=== PATIENT | female | born 1960 | race American Indian/Alaskan Native ===

== ENCOUNTER 2017-02-27 15:31 | Emergency (ER) | payer SELFPAY ==
[~2017-02-27] VITALS: Ht 162.6 cm; Wt 80.3 kg
[2017-02-27] MEDS ORDERED: IV NORMAL SALINE 1000ML BAG 1,000 ML IV ONE (16:00)
[2017-02-27] MEDS ORDERED: MORPHINE SULFATE 10 MG/ML VIAL. IV ONE (16:00)
[2017-02-27] MEDS ORDERED: ONDANSETRON PF 4 MG/2 ML VIAL. IV ONE (16:00)
[2017-02-27 16:20] LABS: BASO # 0.1 x10^3/uL (0.0-0.2); BASO % 1 % (0-3); EOS % 3 % (0-3); HEMATOCRIT 37.8 % (36.0-47.0); HEMOGLOBIN 13.4 g/dL (12.0-15.5); LYMPH # 3.1 x10^3/uL (1.0-4.8); LYMPH % 31 % (24-48); MEAN CORPUSCULAR HEMOGLOBIN 33 pg (25-35); MEAN CORPUSCULAR HGB CONC 35 g/dL (31-37); MEAN CORPUSCULAR VOLUME 93 fL (79-100); MONO % 8 % (0-9); NEUT % 58 % (31-73); PLATELET COUNT 289 x10^3/uL (140-400); RED BLOOD COUNT 4.09 x10^6/uL (3.50-5.40); RED CELL DISTRIBUTION WIDTH 12.6 % (11.5-14.5)
[2017-02-27] MEDS ORDERED: CONTRAST GIVEN MC PRN (16:30)
[2017-02-27] MEDS ORDERED: IOHEXOL 300 MG/ML 75 ML VIAL IV ONE (16:30)
[2017-02-27 16:41] LABS: CALCIUM 8.8 mg/dL (8.5-10.1); CREATININE 0.8 mg/dL (0.6-1.0); GFR 74.5; POTASSIUM 4.2 mmol/L (3.5-5.1)
--- NOTE | 2017-02-27 16:42 | PHYS DOC ---
Past Medical History Past Medical History: Asthma, Diabetes-Type II, Hypertension Past Surgical History: Appendectomy, Cholecystectomy, Hysterectomy Alcohol Use: None Drug Use: None Adult General Chief Complaint Chief Complaint: ABDOMINAL PAIN HPI HPI Patient is a 56 year old female presenting to the emergency department for evaluation of diffuse abdominal pain nausea vomiting and diarrhea started 2-3 days ago and has persisted. The pain is worse on her left side but she has some right sided sharp pain intermittently as well. She has had a cholecystectomy. She says the emesis is nonbloody nonbilious and diarrhea is watery but no blood. No recent travel history or antibiotic use. She was seen by her primary care provider and told to come straight to the emergency department. She is in no obvious distress with normal vital signs. Review of Systems Review of Systems Constitutional: Denies fever or chills [] Eyes: Denies change in visual acuity, redness, or eye pain [] HENT: Denies nasal congestion or sore throat [] Respiratory: Denies cough or shortness of breath [] Cardiovascular: No additional information not addressed in HPI [] GI: + abdominal pain, nausea, vomiting, diarrhea [] : Denies dysuria or hematuria [] Musculoskeletal: Denies back pain or joint pain [] Integument: Denies rash or skin lesions [] Neurologic: Denies headache, focal weakness or sensory changes [] Current Medications Current Medications Current Medications Medications (Trade) Dose Ordered Sig/Yokasta Start Time Stop Time Status Last Admin Dose Admin Info (Do NOT chart on this entry -- for MONITORING) 1 each PRN DAILY PRN 02/27/17 16:30 03/01/17 16:29 Iohexol (Omnipaque 300 Mg/ml) 75 ml 1X ONCE 02/27/17 16:30 02/27/17 16:31 DC 02/27/17 17:04 75 ML Morphine Sulfate 5 mg 1X ONCE 02/27/17 16:00 02/27/17 16:01 DC 02/27/17 18:19 5 MG Ondansetron HCl (Zofran) 8 mg 1X ONCE 02/27/17 16:00 02/27/17 16:01 DC 02/27/17 18:18 8 MG Sodium Chloride 1,000 ml @ 1,000 mls/hr 1X ONCE 02/27/17 16:00 02/27/17 16:59 DC 02/27/17 18:17 1,000 MLS/HR Allergies Allergies Allergies Coded Allergies Type Severity Reaction Last Updated Verified Latex, Natural Rubber Allergy Severe blisters 06/15/14 Yes Uncoded Allergies Type Severity Reaction Last Updated Verified cumin Allergy Severe rash 06/15/14 Physical Exam Physical Exam Constitutional: Well developed, well nourished, no acute distress, non-toxic appearance. [] HENT: Normocephalic, atraumatic, bilateral external ears normal, oropharynx moist, no oral exudates, nose normal. [] Eyes: PERRLA, EOMI, conjunctiva normal, no discharge. [] Neck: Normal range of motion, no tenderness, supple, no stridor. [] Cardiovascular:Heart rate regular rhythm, no murmur [] Lungs & Thorax: Bilateral breath sounds clear to auscultation [] Abdomen: Bowel sounds normal, soft, + LUQ and LLQ tenderness, no masses, no pulsatile masses. [] Skin: Warm, dry, no erythema, no rash. [] Back: No tenderness, no CVA tenderness. [] Extremities: No tenderness, no cyanosis, no clubbing, ROM intact, no edema. [] Neurologic: Alert and oriented X 3, normal motor function, normal sensory function, no focal deficits noted. [] Current Patient Data Vital Signs Vital Signs Date Time Temp Pulse Resp B/P (MAP) Pulse Ox O2 Delivery O2 Flow Rate FiO2 02/27/17 18:19 19 97 Room Air 02/27/17 15:45 97.6 94 147/69 (95) 97.6 Lab Values Laboratory Tests Test 02/27/17 16:05 02/27/17 16:23 White Blood Count 10.0 x10^3/uL (4.0-11.0) Red Blood Count 4.09 x10^6/uL (3.50-5.40) Hemoglobin 13.4 g/dL (12.0-15.5) Hematocrit 37.8 % (36.0-47.0) Mean Corpuscular Volume 93 fL (79-100) Mean Corpuscular Hemoglobin 33 pg (25-35) Mean Corpuscular Hemoglobin Concent 35 g/dL (31-37) Red Cell Distribution Width 12.6 % (11.5-14.5) Platelet Count 289 x10^3/uL (140-400) Neutrophils (%) (Auto) 58 % (31-73) Lymphocytes (%) (Auto) 31 % (24-48) Monocytes (%) (Auto) 8 % (0-9) Eosinophils (%) (Auto) 3 % (0-3) Basophils (%) (Auto) 1 % (0-3) Neutrophils # (Auto) 5.8 x10^3uL (1.8-7.7) Lymphocytes # (Auto) 3.1 x10^3/uL (1.0-4.8) Monocytes # (Auto) 0.8 x10^3/uL (0.0-1.1) Eosinophils # (Auto) 0.3 x10^3/uL (0.0-0.7) Basophils # (Auto) 0.1 x10^3/uL (0.0-0.2) Sodium Level 136 mmol/L (136-145) Potassium Level 4.2 mmol/L (3.5-5.1) Chloride Level 101 mmol/L (98-107) Carbon Dioxide Level 28 mmol/L (21-32) Anion Gap 7 (6-14) Blood Urea Nitrogen 14 mg/dL (7-20) Creatinine 0.8 mg/dL (0.6-1.0) Estimated GFR (Cockcroft-Gault) 74.5 BUN/Creatinine Ratio 18 (6-20) Glucose Level 315 mg/dL (70-99) H Lactic Acid Level 1.6 mmol/L (0.4-2.0) Calcium Level 8.8 mg/dL (8.5-10.1) Magnesium Level 2.0 mg/dL (1.8-2.4) Total Bilirubin 0.1 mg/dL (0.2-1.0) L Aspartate Amino Transferase (AST) 14 U/L (15-37) L Alanine Aminotransferase (ALT) 26 U/L (14-59) Alkaline Phosphatase 98 U/L (46-116) Creatine Kinase 177 U/L (26-192) Total Protein 7.5 g/dL (6.4-8.2) Albumin 3.6 g/dL (3.4-5.0) Albumin/Globulin Ratio 0.9 (1.0-1.7) L Lipase 111 U/L (73-393) Urine Collection Type Unknown Urine Color Yellow Urine Clarity Clear Urine pH 6.0 Urine Specific [place] >=1.030 Urine Protein Negative mg/dL (NEG-TRACE) Urine Glucose (UA) >=1000 mg/dL (NEG) Urine Ketones (Stick) Negative mg/dL (NEG) Urine Blood Negative (NEG) Urine Nitrite Negative (NEG) Urine Bilirubin Negative (NEG) Urine Urobilinogen Dipstick 0.2 mg/dL (0.2 mg/dL) Urine Leukocyte Esterase Small (NEG) Urine RBC 0 /HPF (0-2) Urine WBC 5-10 /HPF (0-4) Urine Squamous Epithelial Cells Few /LPF Urine Bacteria Few /HPF (0-FEW) Laboratory Tests 02/27/17 16:05 Laboratory Tests 02/27/17 16:05 EKG EKG [] Radiology/Procedures Radiology/Procedures CT Abdomen and Pelvis With Intravenous Contrast: History: Mid upper abdominal pain for 5 days. Comparison: None. Technique: After administration of intravenous contrast, 75 mL of Omnipaque 300, CT of the abdomen and pelvis was performed. Exposure: One or more of the following individualized dose reduction techniques were utilized for this examination: 1. Automated exposure control 2. Adjustment of the mA and/or kV according to patient size 3. Use of iterative reconstruction technique Findings: Evaluation of enteric structures may be limited by lack of oral contrast. Liver, spleen, pancreas, and right adrenal gland are unremarkable. Mild nodular thickening of left adrenal gland is seen. Gallbladder is absent. Bilateral kidneys enhance symmetrically. Aortic atherosclerosis is noted. A moderate fat-containing epigastric ventral hernia is seen. There is an additional small fat-containing epigastric ventral hernia just superior to the level of the umbilicus. No bowel obstruction or inflammation is appreciated. Appendix is not confidently identified. Degenerative changes are present in the spine. Impression: 1. No acute abnormality identified in the abdomen or pelvis. 2. Fat-containing epigastric ventral hernias. Electronically signed by: Adalberto Miranda MD (02/27/2017 5:26 PM) DICTATED and SIGNED BY: ADALBERTO MIRANDA MD DATE: 02/27/17 110 Course & Med Decision Making Course & Med Decision Making Patient presenting to ED for evaluation of non-specific abd pain, n,v,d. Patient given several medications and her pain and nausea is resolved and she is feeling better nausea to go home. She can tolerate fluids with no difficulty so she will be discharged with supportive treatment told to follow with primary care provider and come back to the ER sooner with worsening pain fevers vomiting or other general concerns. Marina Disclaimer Marina Disclaimer This electronic medical record was generated, in whole or in part, using a voice recognition dictation system. Departure Departure Impression: Primary Impression: Abdominal pain Additional Impressions: Nausea & vomiting Diarrhea Disposition: HOME, SELF-CARE Condition: GOOD Referrals: UNKNOWN PCP NAME (PCP) Patient Instructions: Abdominal Pain (Nonspecific) Additional Instructions: Drink plenty of water and treat your blood sugars as appropriate. Scripts Ondansetron (ZOFRAN ODT) 4 Mg Tab.rapdis 4 MG PO BID Y for NAUSEA/VOMITING, #14 TAB Prov: BENJIE GARRIDO DO 02/27/17 Hydrocodone/Apap 5-325 (NORCO 5-325 TABLET) 1 Each Tablet 1 TAB PO PRN Q6HRS Y for PAIN, #20 TAB 0 Refills Prov: BENJIE GARRIDO DO 02/27/17 Problem Qualifiers Primary Impression: Abdominal pain Abdominal location: generalized Qualified Codes: R10.84 - Generalized abdominal pain BENJIE GARRIDO DO Feb 27, 2017 16:42
[2017-02-27 16:47] LABS: ALBUMIN 3.6 g/dL (3.4-5.0); ALBUMIN/GLOBULIN RATIO 0.9 (1.0-1.7); TOTAL BILIRUBIN 0.1 mg/dL (0.2-1.0); TOTAL PROTEIN 7.5 g/dL (6.4-8.2)
[2017-02-27 17:01] LABS: BILIRUBIN,URINE NEGATIVE (NEG); GLUCOSE,URINE >=1000 mg/dL (NEG); NITRITE,URINE NEGATIVE (NEG); PROTEIN,URINE NEGATIVE (NEG-TRACE); UROBILINOGEN,URINE 0.2 mg/dL (0.2 mg/dL)
[2017-02-27 17:07] LABS: BACTERIA,URINE FEW /HPF (0-FEW); RBC,URINE 0 /HPF (0-2); SQUAMOUS EPITHELIAL CELL,UR FEW /LPF
--- NOTE | 2017-02-27 17:30 | RAD ---
CT Abdomen and Pelvis With Intravenous Contrast: History: Mid upper abdominal pain for 5 days. Comparison: None. Technique: After administration of intravenous contrast, 75 mL of Omnipaque 300, CT of the abdomen and pelvis was performed. Exposure: One or more of the following individualized dose reduction techniques were utilized for this examination: 1. Automated exposure control 2. Adjustment of the mA and/or kV according to patient size 3. Use of iterative reconstruction technique Findings: Evaluation of enteric structures may be limited by lack of oral contrast. Liver, spleen, pancreas, and right adrenal gland are unremarkable. Mild nodular thickening of left adrenal gland is seen. Gallbladder is absent. Bilateral kidneys enhance symmetrically. Aortic atherosclerosis is noted. A moderate fat-containing epigastric ventral hernia is seen. There is an additional small fat-containing epigastric ventral hernia just superior to the level of the umbilicus. No bowel obstruction or inflammation is appreciated. Appendix is not confidently identified. Degenerative changes are present in the spine. Impression: 1. No acute abnormality identified in the abdomen or pelvis. 2. Fat-containing epigastric ventral hernias. Electronically signed by: Adalberto Miranda MD (02/27/2017 5:26 PM)
[2017-02-27] MEDS ORDERED: ONDA4TAB10 PO (18:56)
[2017-02-27] MEDS ORDERED: HYDR-971 PO (18:56)
[2017-02-27 19:25] VITALS: BP 117/65
== END 2017-02-27 19:27 | disposition home or self-care (01) ==
LOC: ER 15:31
DX: R10.84 Generalized abdominal pain (principal); R11.2 Nausea with vomiting, unspecified; R19.7 Diarrhea, unspecified; J45.909 Unspecified asthma, uncomplicated; E11.9 Type 2 diabetes mellitus without complications; I10 Essential (primary) hypertension; Z90.710 Acquired absence of both cervix and uterus; Z90.49 Acquired absence of other specified parts of digestive tract; Z91.040 Latex allergy status; Z91.018 Allergy to other foods
CPT/HCPCS: 36415; 74177; 80053; 81001; 82550; 83605; 83690; 83735; 85027; 87086; 96374; 96375; 99285; J2270; J2405; J7030; Q9967

== ENCOUNTER 2017-03-31 17:54 | Emergency (ER) | payer SELFPAY ==
[~2017-03-31] VITALS: Ht 162.6 cm; Wt 80.7 kg
[~2017-03-31 17:54] MED LIST: HYDR-971 PO; ONDA4TAB10 PO
[2017-03-31] MEDS ORDERED: IV NORMAL SALINE 1000ML BAG 1,000 ML IV SCH (18:21)
--- NOTE | 2017-03-31 18:36 | PHYS DOC ---
Past Medical History Past Medical History: Asthma, Diabetes-Type II, High Cholesterol, Hypertension Past Surgical History: Appendectomy, Cholecystectomy, Hysterectomy Additional Information: 1 PACK/DAY Alcohol Use: None Drug Use: None Adult General Chief Complaint Chief Complaint: DIZZY/LIGHT HEADED HPI HPI Patient is a 57 year old female who drove herself to the emergency department with the complaint of dizziness and elevated blood sugar. Patient states really for 2 or 3 weeks her stomach has been bothering her, she's had some nausea, vomiting, and diarrhea. She hasn't been eating like usual so some days she has not taken her Januvia. Yesterday she had some vomiting, vomited up S, which she had eaten the night before. She checked her sugar a couple of times and it was 263 and 243. Today, still not feeling well, she checked her blood sugar and it was 398. Patient had her Januvia restarted in October or November. She takes one half every other night and one every other night. Prior to that, she had been off of it for a while, due to noncompliance. PCP Dr.Yvonne Kingsley at [facility]. Patient has a long history of diabetes. She was seen in the ED last month for abdominal pain and had a workup which was unrevealing. She's had nausea, vomiting, diarrhea, and anorexia off and on since then. Review of Systems Review of Systems Constitutional: Denies fever, she has had chills. Eyes: Denies change in visual acuity, redness, or eye pain [] HENT: She has felt like maybe she is coming down with a cold Respiratory: Denies cough or shortness of breath [] Cardiovascular: Denies chest pain GI: As in history of present illness : Denies dysuria or hematuria [] Musculoskeletal: She has aches all over and diffuse weakness Integument: Denies rash or skin lesions [] Neurologic: Denies headache, focal weakness or sensory changes [] Current Medications Current Medications Current Medications Medications (Trade) Dose Ordered Sig/Yokasta Start Time Stop Time Status Last Admin Dose Admin Sodium Chloride 1,000 ml @ 1,000 mls/hr Q1H 03/31/17 18:21 03/31/17 19:20 DC 03/31/17 18:30 1,000 MLS/HR Allergies Allergies Allergies Coded Allergies Type Severity Reaction Last Updated Verified Latex, Natural Rubber Allergy Severe blisters 06/15/14 Yes Uncoded Allergies Type Severity Reaction Last Updated Verified cumin Allergy Severe rash 06/15/14 Physical Exam Physical Exam Constitutional: Well developed, well nourished, no acute distress, non-toxic appearance. Alert, mentating normally. HENT: Normocephalic, atraumatic, bilateral external ears normal, nose normal. [] Eyes: conjunctiva normal, no discharge. [] Neck: Normal range of motion, no stridor. [] Cardiovascular:Heart rate regular rhythm, no murmur [] Lungs & Thorax: Bilateral breath sounds clear to auscultation [] Abdomen: Bowel sounds normal, soft, no tenderness, nondistended, no masses, no pulsatile masses. [] Skin: Warm, dry, no erythema, no rash. [] Back: No tenderness, no CVA tenderness. [] Extremities: No tenderness, no cyanosis, no clubbing, ROM intact, no edema. [] Neurologic: Alert and oriented X 3, normal motor function, normal sensory function, no focal deficits noted. [] Current Patient Data Vital Signs Vital Signs Date Time Temp Pulse Resp B/P (MAP) Pulse Ox O2 Delivery O2 Flow Rate FiO2 03/31/17 19:36 90 22 132/68 (89) 96 Room Air 03/31/17 18:05 98.3 98.3 Lab Values Laboratory Tests Test 03/31/17 18:10 03/31/17 18:11 White Blood Count 10.7 x10^3/uL (4.0-11.0) Red Blood Count 4.36 x10^6/uL (3.50-5.40) Hemoglobin 14.2 g/dL (12.0-15.5) Hematocrit 40.9 % (36.0-47.0) Mean Corpuscular Volume 94 fL (79-100) Mean Corpuscular Hemoglobin 33 pg (25-35) Mean Corpuscular Hemoglobin Concent 35 g/dL (31-37) Red Cell Distribution Width 12.3 % (11.5-14.5) Platelet Count 325 x10^3/uL (140-400) Neutrophils (%) (Auto) 64 % (31-73) Lymphocytes (%) (Auto) 29 % (24-48) Monocytes (%) (Auto) 5 % (0-9) Eosinophils (%) (Auto) 2 % (0-3) Basophils (%) (Auto) 1 % (0-3) Neutrophils # (Auto) 6.8 x10^3uL (1.8-7.7) Lymphocytes # (Auto) 3.1 x10^3/uL (1.0-4.8) Monocytes # (Auto) 0.5 x10^3/uL (0.0-1.1) Eosinophils # (Auto) 0.2 x10^3/uL (0.0-0.7) Basophils # (Auto) 0.1 x10^3/uL (0.0-0.2) Urine Collection Type Unknown Urine Color Yellow Urine Clarity Clear Urine pH 6.0 Urine Specific [place] >=1.030 Urine Protein Negative mg/dL (NEG-TRACE) Urine Glucose (UA) >=1000 mg/dL (NEG) Urine Ketones (Stick) Negative mg/dL (NEG) Urine Blood Negative (NEG) Urine Nitrite Negative (NEG) Urine Bilirubin Negative (NEG) Urine Urobilinogen Dipstick 0.2 mg/dL (0.2 mg/dL) Urine Leukocyte Esterase Negative (NEG) Urine RBC 0 /HPF (0-2) Urine WBC 1-4 /HPF (0-4) Urine Squamous Epithelial Cells Few /LPF Urine Bacteria Few /HPF (0-FEW) Urine Mucus Mod /LPF Sodium Level 134 mmol/L (136-145) L Potassium Level 3.8 mmol/L (3.5-5.1) Chloride Level 96 mmol/L (98-107) L Carbon Dioxide Level 27 mmol/L (21-32) Anion Gap 11 (6-14) Blood Urea Nitrogen 15 mg/dL (7-20) Creatinine 0.8 mg/dL (0.6-1.0) Estimated GFR (Cockcroft-Gault) 74.2 BUN/Creatinine Ratio 19 (6-20) Glucose Level 445 mg/dL (70-99) H Calcium Level 9.0 mg/dL (8.5-10.1) Total Bilirubin 0.3 mg/dL (0.2-1.0) Aspartate Amino Transferase (AST) 17 U/L (15-37) Alanine Aminotransferase (ALT) 26 U/L (14-59) Alkaline Phosphatase 96 U/L (46-116) Creatine Kinase 134 U/L (26-192) Creatine Kinase MB (Mass) 2.4 ng/mL (0.0-3.6) Creatine Kinase MB Relative Index 1.8 % (0-4) Troponin I Quantitative < 0.017 ng/mL (0.000-0.055) Total Protein 8.1 g/dL (6.4-8.2) Albumin 3.8 g/dL (3.4-5.0) Albumin/Globulin Ratio 0.9 (1.0-1.7) L Glucose (Fingerstick) 411 mg/dL (70-99) H Laboratory Tests 03/31/17 18:10 Laboratory Tests 03/31/17 18:10 EKG EKG 12-lead EKG read by me. Sinus tachycardia. Heart rate 105. There are no acute ST or T wave changes indicative of ischemia or infarction. No STEMI. 180 [] Radiology/Procedures Radiology/Procedures [] Course & Med Decision Making Course & Med Decision Making Pertinent Labs and Imaging studies reviewed. (See chart for details) 57-year-old female who is diabetic presents with elevated blood sugar and dizziness. She has not been taking her Januvia as prescribed due to GI complaints that may or may not be related to the Januvia. Discussed with the patient we will check some labs and give her some IV fluids as a starting point , she is agreeable to that. Patient was given a liter of IV normal saline and she stated she felt a lot better. The only significant lab abnormality is a glucose in the 400s. This is directly related to the patient not taking her Januvia as prescribed. I discussed with the patient whether she would consider being admitted to the hospital for treatment of hyperglycemia and dehydration. Patient feels better right now and she prefers not to be admitted. She will go home and get restarted on her Januvia. I encouraged her to be sure she takes it as prescribed , and if she is having side effects that she believes are from the Januvia, she should talk with her doctor about this. She understands. [] Dragon Disclaimer Dragon Disclaimer This electronic medical record was generated, in whole or in part, using a voice recognition dictation system. Departure Departure Impression: Primary Impression: Hyperglycemia due to type 2 diabetes mellitus Additional Impression: Dehydration Disposition: HOME, SELF-CARE Condition: STABLE Referrals: UNKNOWN PCP NAME (PCP) Patient Instructions: Dehydration, Adult, [id number], Hyperglycemia, Easy-to- Read Additional Instructions: As we discussed, because your blood sugar is so high, you are dehydrated. We gave you a liter of fluid here in the emergency department. I recommend that you continue to drink plenty of fluids, include an electrolyte drink such as G2 Gatorade that does not have carbs. Take your Januvia as prescribed by your doctor. If you believe that Januvia is causing side effects that are bothering you, discuss this with your doctor. Make an appointment for recheck this week. Problem Qualifiers JENIFER DEGROOT MD Mar 31, 2017 18:36
[2017-03-31 18:53] LABS: BASO # 0.1 x10^3/uL (0.0-0.2); BASO % 1 % (0-3); EOS % 2 % (0-3); HEMATOCRIT 40.9 % (36.0-47.0); HEMOGLOBIN 14.2 g/dL (12.0-15.5); LYMPH # 3.1 x10^3/uL (1.0-4.8); LYMPH % 29 % (24-48); MEAN CORPUSCULAR HEMOGLOBIN 33 pg (25-35); MEAN CORPUSCULAR HGB CONC 35 g/dL (31-37); MEAN CORPUSCULAR VOLUME 94 fL (79-100); MONO % 5 % (0-9); NEUT % 64 % (31-73); PLATELET COUNT 325 x10^3/uL (140-400); RED BLOOD COUNT 4.36 x10^6/uL (3.50-5.40); RED CELL DISTRIBUTION WIDTH 12.3 % (11.5-14.5); WHITE BLOOD COUNT 10.7 x10^3/uL (4.0-11.0)
[2017-03-31 18:54] LABS: BILIRUBIN,URINE NEGATIVE (NEG); GLUCOSE,URINE >=1000 mg/dL (NEG); NITRITE,URINE NEGATIVE (NEG); PROTEIN,URINE NEGATIVE (NEG-TRACE); UROBILINOGEN,URINE 0.2 mg/dL (0.2 mg/dL)
[2017-03-31 19:08] LABS: BACTERIA,URINE FEW /HPF (0-FEW); CREATININE 0.8 mg/dL (0.6-1.0); GFR 74.2; POTASSIUM 3.8 mmol/L (3.5-5.1); RBC,URINE 0 /HPF (0-2); SQUAMOUS EPITHELIAL CELL,UR FEW /LPF
[2017-03-31 19:14] LABS: ALBUMIN 3.8 g/dL (3.4-5.0); ALBUMIN/GLOBULIN RATIO 0.9 (1.0-1.7); TOTAL BILIRUBIN 0.3 mg/dL (0.2-1.0); TOTAL PROTEIN 8.1 g/dL (6.4-8.2)
[2017-03-31 19:22] LABS: CKMB MASS 2.4 ng/mL (0.0-3.6)
[2017-03-31 19:36] VITALS: BP 132/68
--- NOTE | 2017-04-01 07:48 | RAD ---
Portable AP chest. History: Weakness, dizzy AP view was taken of the chest. Lungs are free of infiltrates. Heart is normal in size without heart failure. There is no effusion. Impression: 1. No acute chest disease.
--- NOTE | 2017-04-01 11:13 | EKG ---
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
== END 2017-03-31 19:43 | disposition home or self-care (01) ==
LOC: ER 17:54
DX: E11.65 Type 2 diabetes mellitus with hyperglycemia (principal); E86.0 Dehydration; E78.00 Pure hypercholesterolemia, unspecified; I10 Essential (primary) hypertension; J45.909 Unspecified asthma, uncomplicated; F17.200 Nicotine dependence, unspecified, uncomplicated; Z90.710 Acquired absence of both cervix and uterus; Z90.49 Acquired absence of other specified parts of digestive tract; Z91.040 Latex allergy status; Z91.018 Allergy to other foods
CPT/HCPCS: 36415; 71010; 80053; 81001; 82553; 82962; 84484; 85027; 93005; 96360; 99285; J7030

== ENCOUNTER 2018-04-01 02:06 | Emergency (ER) | payer SELFPAY ==
[2018-04-01 03:00] LABS: ADD MAN DIFF? NO; BASO # 0.1 x10^3/uL (0.0-0.2); BASO % 1 % (0-3); EOS # 0.3 x10^3/uL (0.0-0.7); EOS % 2 % (0-3); HEMOGLOBIN 13.3 g/dL (12.0-15.5); LYMPH # 2.4 x10^3/uL (1.0-4.8); LYMPH % 18 % (24-48); MEAN CORPUSCULAR HEMOGLOBIN 32 pg (25-35); MEAN CORPUSCULAR HGB CONC 35 g/dL (31-37); MEAN CORPUSCULAR VOLUME 93 fL (79-100); MONO % 7 % (0-9); NEUT # 9.6 x10^3uL (1.8-7.7); NEUT % 72 % (31-73); PLATELET COUNT 359 x10^3/uL (140-400); RED CELL DISTRIBUTION WIDTH 12.3 % (11.5-14.5); WHITE BLOOD COUNT 13.4 x10^3/uL (4.0-11.0)
[2018-04-01] MEDS: IV NORMAL SALINE 1000ML BAG 1,000 ML IV (03:05)
[2018-04-01] MEDS: ONDANSETRON PF 4 MG/2 ML VIAL. IV ×2 (03:06→06:39)
[2018-04-01] MEDS: MORPHINE SULFATE 10 MG/ML VIAL. IV (03:06)
[2018-04-01 03:29] LABS: BILIRUBIN,URINE NEGATIVE (NEG); CLARITY,URINE CLEAR; COLOR,URINE YELLOW; GLUCOSE,URINE >=1000 mg/dL (NEG); NITRITE,URINE NEGATIVE (NEG); PROTEIN,URINE NEGATIVE (NEG-TRACE); UROBILINOGEN,URINE 0.2 mg/dL (0.2 mg/dL)
[2018-04-01 03:30] LABS: ANION GAP 9 (6-14); BLOOD UREA NITROGEN 11 mg/dL (7-20); BUN/CREATININE RATIO 16 (6-20); CALCIUM 8.5 mg/dL (8.5-10.1); CARBON DIOXIDE 29 mmol/L (21-32); CHLORIDE 98 mmol/L (98-107); CREATININE 0.7 mg/dL (0.6-1.0); GFR 86.2; GLUCOSE 256 mg/dL (70-99); POTASSIUM 4.5 mmol/L (3.5-5.1); SODIUM 136 mmol/L (136-145)
[2018-04-01 03:36] LABS: ALBUMIN 3.5 g/dL (3.4-5.0); ALBUMIN/GLOBULIN RATIO 0.9 (1.0-1.7); ALK PHOS 126 U/L (46-116); ALT (SGPT) 24 U/L (14-59); AST (SGOT) 14 U/L (15-37); LIPASE 927 U/L (73-393); TOTAL BILIRUBIN 0.1 mg/dL (0.2-1.0); TOTAL PROTEIN 7.4 g/dL (6.4-8.2)
[2018-04-01 03:40] LABS: TROPONINI < 0.017 ng/mL (0.000-0.055)
[2018-04-01 03:44] LABS: BACTERIA,URINE 0 /HPF (0-FEW); RBC,URINE OCC /HPF (0-2); SQUAMOUS EPITHELIAL CELL,UR FEW /LPF; WBC,URINE OCC /HPF (0-4)
[2018-04-01] MEDS ORDERED: CONTRAST GIVEN. MC ×2 (04:45→05:30)
[2018-04-01] MEDS: IOHEXOL 350 MG/ML 100 ML VIAL. IV (04:46)
[2018-04-01] MEDS ORDERED: IOHEXOL 300 MG/ML 100ML VIAL. (05:18)
[2018-04-01] MEDS ORDERED: IOHEXOL 300 MG/ML 100ML VIAL. IV (05:30)
[2018-04-01] MEDS: fentaNYL PF VIAL 100 MCG/2 ML VIAL IV (06:39)
== END 2018-04-01 06:49 | disposition home or self-care (01) ==
LOC: ER 02:06
DX: K85.90 Acute pancreatitis without necrosis or infection, unspecified (principal); M54.9 Dorsalgia, unspecified; J45.909 Unspecified asthma, uncomplicated; E11.9 Type 2 diabetes mellitus without complications; E78.00 Pure hypercholesterolemia, unspecified; I10 Essential (primary) hypertension; Z90.49 Acquired absence of other specified parts of digestive tract; Z90.710 Acquired absence of both cervix and uterus; Z91.040 Latex allergy status; Z91.048 Other nonmedicinal substance allergy status
CPT/HCPCS: 36415; 74177; 80053; 81001; 83690; 84484; 85025; 93005; 96374; 96375; 96376; 99285-25; J2270; J2405; J3010; J7030; Q9967

== ENCOUNTER 2020-04-05 18:22 | Emergency (ER) | payer OTHER ==
[~2020-04-05] VITALS: Ht 162.6 cm; Wt 80.0 kg
[~2020-04-05 18:22] MED LIST changes: +HYDR-3164 PO; -HYDR-971 PO; +ONDA4TAB7 PO; +OXYC1TAB15 PO
[2020-04-05] MEDS ORDERED: IV NORMAL SALINE 1000ML BAG 1,000 ML IV ONE ×2 (19:30→22:30)
[2020-04-05] MEDS ORDERED: ONDANSETRON PF 4 MG/2 ML VIAL. IVP ONE (19:45)
[2020-04-05] MEDS ORDERED: ACETAMINOPHEN 500 MG TABLET PO ONE (19:45)
[2020-04-05 20:21] LABS: BASO # 0.1 x10^3/uL (0.0-0.2); BASO % 1 % (0-3); EOS # 0.1 x10^3/uL (0.0-0.7); EOS % 0 % (0-3); HEMATOCRIT 42.9 % (36.0-47.0); HEMOGLOBIN 14.9 g/dL (12.0-15.5); LYMPH # 3.5 x10^3/uL (1.0-4.8); LYMPH % 29 % (24-48); MEAN CORPUSCULAR HEMOGLOBIN 33 pg (25-35); MEAN CORPUSCULAR HGB CONC 35 g/dL (31-37); MEAN CORPUSCULAR VOLUME 96 fL (79-100); MONO # 0.9 x10^3/uL (0.0-1.1); MONO % 7 % (0-9); NEUT # 7.7 x10^3/uL (1.8-7.7); NEUT % 63 % (31-73); PLATELET COUNT 315 x10^3/uL (140-400); RED BLOOD COUNT 4.47 x10^6/uL (3.50-5.40); RED CELL DISTRIBUTION WIDTH 12.4 % (11.5-14.5); WHITE BLOOD COUNT 12.3 x10^3/uL (4.0-11.0)
[2020-04-05 20:28] LABS: CALCIUM 9.1 mg/dL (8.5-10.1); CREATININE 1.1 mg/dL (0.6-1.0); GFR 50.8; POTASSIUM 3.6 mmol/L (3.5-5.1)
[2020-04-05 20:33] LABS: ALBUMIN 3.9 g/dL (3.4-5.0); ALBUMIN/GLOBULIN RATIO 0.9 (1.0-1.7); TOTAL BILIRUBIN 0.3 mg/dL (0.2-1.0); TOTAL PROTEIN 8.2 g/dL (6.4-8.2)
[2020-04-05] MEDS ORDERED: CONTRAST GIVEN. MC PRN (20:45)
--- NOTE | 2020-04-05 20:58 | PHYS DOC ---
Past Medical History Past Medical History: Asthma, COPD, Diabetes-Type II, High Cholesterol, Hypertension Past Surgical History: Appendectomy, Cholecystectomy, Hysterectomy Smoking Status: Current Every Day Smoker Alcohol Use: None Drug Use: None General Adult EDM: Chief Complaint: FATIGUE HPI: HPI: Patient is a 60 year old female who presents with complaints of generalized weakness, body aches, chills for the past 2 weeks. Patient states she is unsure if she has had a fever or not at home as she did not take her temperature. Patient states that she does have a cough, however she also states that she is a 40+ years pack a day smoker and associates her cough with her chronic smoking patient also states she has some shortness of breath but none beyond her normal shortness of breath from her long smoking history. Patient denies any chest pains. Patient states that she started vomiting today around noon and has vomited 4 times prior to arrival noting clear vomitus. Patient states she has had 10 bouts of diarrhea today with loose brown stool. Patient denies visual changes, nasal congestion, swelling to her extremities, abdominal pain, or constipation, or blood in her stools. Patient denies any problems urinating, denies any back pain or pain in her joints. Patient denies any skin rashes, headaches, focal weaknesses, sensory changes, patient states she is diabetic and takes insulin to control her diabetes and has not noticed any increased polyuria or polydipsia. Patient states her diabetes is usually well controlled. Patient denies any swelling to her glands, recent life changes, depressions, anxieties, homicidal or suicidal ideations. Patient states no one else in her home is having the same symptoms as she. Patient denies concerns of having COVID-19. Review of Systems: Review of Systems: Constitutional: Denies fever, however does complain of chills and generalized body aches Eyes: Denies change in visual acuity. HENT: Denies nasal congestion or sore throat. Respiratory: Complains of a dry cough with shortness of breath that she associates to her long smoking history. Cardiovascular: Denies chest pain or edema. GI: Denies abdominal pain, however complains of nausea, vomiting, and claudia rrhea. Patient denies blood in her stool : Denies dysuria. Musculoskeletal: Denies back pain or joint pain. Patient does complain of generalized aching to her thighs calves upper arms. Integument: Denies rash. Neurologic: Denies headache, focal weakness or sensory changes. Endocrine: Denies polyuria or polydipsia. Lymphatic: Denies swollen glands. Psychiatric: Denies depression or anxiety. Patient denies HI SI Heart Score: Risk Factors: Risk Factors: DM, Current or recent (<one month) smoker, HTN, HLP, family history of CAD, obesity. Risk Scores: Score 0 - 3: 2.5% MACE over next 6 weeks - Discharge Home Score 4 - 6: 20.3% MACE over next 6 weeks - Admit for Clinical Observation Score 7 - 10: 72.7% MACE over next 6 weeks - Early Invasive Strategies Family History: Family History: Patient reports a family history on her mom and dad side consisting of diabetes type 2, hypertension, kidney disease. Current Medications: Current Medications Medications (Trade) Dose Ordered Sig/Yokasta Start Time Stop Time Status Last Admin Dose Admin Acetaminophen (Tylenol) 1,000 mg 1X ONCE 04/05/20 19:45 04/05/20 19:46 DC 04/05/20 20:01 1,000 MG Info (CONTRAST GIVEN -- Rx MONITORING) 1 each PRN DAILY PRN 04/05/20 20:45 04/07/20 20:44 Iohexol (Omnipaque 300 Mg/ml) 75 ml 1X ONCE 04/05/20 21:00 04/05/20 21:01 Ondansetron HCl (Zofran) 4 mg 1X ONCE 04/05/20 19:45 04/05/20 19:46 DC 04/05/20 20:00 4 MG Sodium Chloride 1,000 ml @ 1,000 mls/hr 1X ONCE 04/05/20 19:30 04/05/20 20:29 DC 04/05/20 19:45 1,000 MLS/HR Allergies: Allergies: Allergies Coded Allergies Type Severity Reaction Last Updated Verified Latex, Natural Rubber Allergy Severe blisters 06/15/14 Yes cumin Allergy Severe Rash 11/14/19 Yes Physical Exam: PE: Constitutional: Well developed, well nourished, no acute distress, non-toxic appearance. HENT: Normocephalic, atraumatic, bilateral external ears normal, oropharynx moist, no oral exudates, nose normal. Eyes: PERRLA, EOMI, conjunctiva normal, no discharge. Pupils 3 mm. Neck: Normal range of motion, no tenderness, supple, no stridor. Cardiovascular:Heart rate regular rhythm, no murmur, heart sounds S1-S2, no abnormalities noted per auscultation. Lungs & Thorax: Bilateral breath sounds clear to auscultation all lung chaudhry. Abdomen: Bowel sounds hyperactive, soft, no tenderness, no masses, no pulsatile masses. Skin: Warm, dry, no erythema, no rash. Back: No tenderness, no CVA tenderness. Extremities: Generalized tenderness to palpation over large muscle groups such as thighs calves upper arms biceps, no cyanosis, no clubbing, ROM intact, no edema. Neurologic: Alert and oriented X 3, normal motor function, normal sensory function, no focal deficits noted. Psychologic: Affect normal, judgement normal, mood normal. Current Patient Data: Labs: Laboratory Tests Test 04/05/20 19:35 White Blood Count 12.3 x10^3/uL (4.0-11.0) H Red Blood Count 4.47 x10^6/uL (3.50-5.40) Hemoglobin 14.9 g/dL (12.0-15.5) Hematocrit 42.9 % (36.0-47.0) Mean Corpuscular Volume 96 fL (79-100) Mean Corpuscular Hemoglobin 33 pg (25-35) Mean Corpuscular Hemoglobin Concent 35 g/dL (31-37) Red Cell Distribution Width 12.4 % (11.5-14.5) Platelet Count 315 x10^3/uL (140-400) Neutrophils (%) (Auto) 63 % (31-73) Lymphocytes (%) (Auto) 29 % (24-48) Monocytes (%) (Auto) 7 % (0-9) Eosinophils (%) (Auto) 0 % (0-3) Basophils (%) (Auto) 1 % (0-3) Neutrophils # (Auto) 7.7 x10^3/uL (1.8-7.7) Lymphocytes # (Auto) 3.5 x10^3/uL (1.0-4.8) Monocytes # (Auto) 0.9 x10^3/uL (0.0-1.1) Eosinophils # (Auto) 0.1 x10^3/uL (0.0-0.7) Basophils # (Auto) 0.1 x10^3/uL (0.0-0.2) Sodium Level 132 mmol/L (136-145) L Potassium Level 3.6 mmol/L (3.5-5.1) Chloride Level 94 mmol/L (98-107) L Carbon Dioxide Level 27 mmol/L (21-32) Anion Gap 11 (6-14) Blood Urea Nitrogen 26 mg/dL (7-20) H Creatinine 1.1 mg/dL (0.6-1.0) H Estimated GFR (Cockcroft-Gault) 50.8 BUN/Creatinine Ratio 24 (6-20) H Glucose Level 346 mg/dL (70-99) H Calcium Level 9.1 mg/dL (8.5-10.1) Total Bilirubin 0.3 mg/dL (0.2-1.0) Aspartate Amino Transferase (AST) 10 U/L (15-37) L Alanine Aminotransferase (ALT) 23 U/L (14-59) Alkaline Phosphatase 82 U/L (46-116) Total Protein 8.2 g/dL (6.4-8.2) Albumin 3.9 g/dL (3.4-5.0) Albumin/Globulin Ratio 0.9 (1.0-1.7) L Laboratory Tests 04/05/20 19:35 Laboratory Tests 04/05/20 19:35 Vital Signs: Vital Signs Date Time Temp Pulse Resp B/P (MAP) Pulse Ox O2 Delivery O2 Flow Rate FiO2 04/05/20 19:45 98.0 97 16 129/89 (102) 98 98.0 04/05/20 18:39 Room Air EKG: EKG: [] Radiology/Procedures: Radiology/Procedures: REASON: COUGH, SHORT OF BREATH, NAUSEA, DIARRHEA, ABD PAIN, COVID-19 PUI PROCEDURE: CT CHEST ABD PELVIS W/CONTRAST EXAM: CT Chest, Abdomen and Pelvis with IV contrast CLINICAL HISTORY: COUGH, SHORT OF BREATH, NAUSEA, DIARRHEA, ABD PAIN, COVID-19 PUI COMPARISON: 11/13/2019, 04/01/2020 TECHNIQUE: Helical CT of the chest, abdomen and pelvis was performed following the administration of intravenous contrast. Axial, coronal and sagittal reformatted images were generated. ---PQRS compliance statement - One or more of the following individualized dose reduction techniques were utilized for this study: 1. Automated exposure control 2. Adjustment of the mA and/or kV according to patient size 3. Use of iterative reconstruction technique--- FINDINGS: Chest: Heart is not enlarged. Coronary calcifications are seen. No pericardial effusion. No pleural effusion or pneumothorax. No axillary lymphadenopathy. No mediastinal lymphadenopathy. Peripheral linear/patchy opacities with groundglass prominence in the right greater than left lower lobes may represent atelectasis although atypical infectious or inflammatory process would also have this appearance. Abdomen and pelvis: Liver and biliary system: Hepatic hypoattenuation likely fatty liver. No focal liver lesion is seen. Liver is enlarged measuring approximately 21 cm in length. Cholecystectomy clips are noted. No biliary ductal dilatation. Spleen: Unremarkable Pancreas: Unremarkable Adrenal glands: Unremarkable Kidneys: Symmetric nephrograms. No focal renal lesion. Lobulated appearance of the upper pole of the right kidney likely from prior renal cortical scarring. No hydronephrosis or hydroureter. Lymph nodes/retroperitoneum: No abdominal or pelvic lymphadenopathy. Vessels: Intermittent atherosclerotic calcifications of the infrarenal aorta and bilateral iliacs. Bowel/Peritoneal cavity: There is moderate colonic stool content. No small or large bowel dilatation. No bowel obstruction. Colonic diverticula are seen. No evidence for acute diverticulitis. Appendix is not seen however no significant right lower quadrant/pericecal inflammatory changes are seen. No abdominal pelvic ascites. Abdominal wall: Fat-containing ventral abdominal hernia is seen with broad-based. Bladder: Bladder is decompressed although there is mild bladder wall thickening which may be seen with cystitis. Bones: No aggressive osseous lesion is seen. IMPRESSION: Peripheral opacities in the lower lobes may represent atelectasis related to infectious/lateral process may also have this appearance. Hepatomegaly and fatty liver. Broad-based fat-containing ventral abdominal hernia without associated inflammatory change. No bowel obstruction. Although the appendix is not seen, no significant right lower quadrant/pericecal inflammatory changes are seen. Electronically signed by: Deniz Leslie MD (04/05/2020 9:26 PM) [facility] DICTATED and SIGNED BY: DENIZ LESLIE MD DATE: 04/05/202125 Course & Med Decision Making: Course & Med Decision Making Pertinent Labs and Imaging studies reviewed. (See chart for details) 60-year-old patient arrived to the emergency department today complaining of 2 weeks of generalized weakness and body aches with chills stating she is unsure what her fever was as she did not take her temperature at home patient complains of a dry cough with some shortness of breath that she attributes to her smoking history of greater than 40 years 1 pack/day. Patient states she vomited 4 times today since noon prior to arrival and had 10 bouts of diarrhea this brown watery stools without blood. Patient's vital signs were reviewed, labs were ordered, and imaging. Patient CBC was not concerning of acute infectious process, patient did have a diarrhea stool during nursing triage, stool cultures and C. difficile ordered. However patient did not have another stool during her ER stay, so stool was not collected for studies. Patient's blood sugar was was elevated and the patient was given 10 units of IV insulin along with 2 L of normal saline, her repeat/discharge blood sugar was 174. Patient showed no signs and symptoms of DKA nor did lab results indicate DKA. Patient's radiologic imaging was concerning for atelectasis concerning for infectious process. Upon physical reexamine of the patient and review of findings. Patient states that she would not be admitted as she must care for her children at home and has no help. Patient currently has no complaints stating the p.o. Tylenol given helped her feel better and states she is symptom-free at this time. Discussed with patient possibility of COVID virus infection, labs will be pending patient states that she will self isolate at home take the prescribed medicines Z-Angus as directed and return if any symptoms worse, if she gets any acute shortness of breath, or she has other concerns. Patient will be given a prescription for Z-Angus patient gave verbal understanding of home/DC instructions, has no further questions or concerns. Marina Disclaimer: Marina Disclaimer: This electronic medical record was generated, in whole or in part, using a voice recognition dictation system. Departure Departure Impression: Primary Impression: Viral respiratory illness Additional Impressions: Atelectasis of both lungs Person under investigation for COVID-19 Disposition: HOME, SELF-CARE Condition: GOOD Referrals: NO PCP (PCP) Patient Instructions: Viral Syndrome Additional Instructions: Please take prescriptions as instructed, please self isolate until you receive your COVID19 results. Please return to the ER if symptoms worsen, you experience any increased shortness of breath, or chest pain, or other concerns. Scripts Azithromycin (ZITHROMAX) 250 Mg Tablet 1 PKG PO UD, #6 TAB 0 Refills Prov: VIRGINIA TOBIAS APRN 04/05/20 Justicifation of Admission Dx: Justifications for Admission: Justification of Admission Dx: N/A VIRGINIA TOBIAS APRN Apr 05, 2020 20:58
[2020-04-05] MEDS ORDERED: IOHEXOL 300 MG/ML 100ML VIAL. IV ONE (21:00)
--- NOTE | 2020-04-05 21:29 | RAD ---
EXAM: CT Chest, Abdomen and Pelvis with IV contrast CLINICAL HISTORY: COUGH, SHORT OF BREATH, NAUSEA, DIARRHEA, ABD PAIN, COVID-19 PUI COMPARISON: 11/13/2019, 04/01/2020 TECHNIQUE: Helical CT of the chest, abdomen and pelvis was performed following the administration of intravenous contrast. Axial, coronal and sagittal reformatted images were generated. ---PQRS compliance statement - One or more of the following individualized dose reduction techniques were utilized for this study: 1. Automated exposure control 2. Adjustment of the mA and/or kV according to patient size 3. Use of iterative reconstruction technique--- FINDINGS: Chest: Heart is not enlarged. Coronary calcifications are seen. No pericardial effusion. No pleural effusion or pneumothorax. No axillary lymphadenopathy. No mediastinal lymphadenopathy. Peripheral linear/patchy opacities with groundglass prominence in the right greater than left lower lobes may represent atelectasis although atypical infectious or inflammatory process would also have this appearance. Abdomen and pelvis: Liver and biliary system: Hepatic hypoattenuation likely fatty liver. No focal liver lesion is seen. Liver is enlarged measuring approximately 21 cm in length. Cholecystectomy clips are noted. No biliary ductal dilatation. Spleen: Unremarkable Pancreas: Unremarkable Adrenal glands: Unremarkable Kidneys: Symmetric nephrograms. No focal renal lesion. Lobulated appearance of the upper pole of the right kidney likely from prior renal cortical scarring. No hydronephrosis or hydroureter. Lymph nodes/retroperitoneum: No abdominal or pelvic lymphadenopathy. Vessels: Intermittent atherosclerotic calcifications of the infrarenal aorta and bilateral iliacs. Bowel/Peritoneal cavity: There is moderate colonic stool content. No small or large bowel dilatation. No bowel obstruction. Colonic diverticula are seen. No evidence for acute diverticulitis. Appendix is not seen however no significant right lower quadrant/pericecal inflammatory changes are seen. No abdominal pelvic ascites. Abdominal wall: Fat-containing ventral abdominal hernia is seen with broad-based. Bladder: Bladder is decompressed although there is mild bladder wall thickening which may be seen with cystitis. Bones: No aggressive osseous lesion is seen. IMPRESSION: Peripheral opacities in the lower lobes may represent atelectasis related to infectious/lateral process may also have this appearance. Hepatomegaly and fatty liver. Broad-based fat-containing ventral abdominal hernia without associated inflammatory change. No bowel obstruction. Although the appendix is not seen, no significant right lower quadrant/pericecal inflammatory changes are seen. Electronically signed by: Deniz Leslie MD (04/05/2020 9:26 PM) [facility]
[2020-04-05] MEDS ORDERED: INSULIN REGULAR 100 UNIT/ML 3ML VIAL. IV ONE (22:30)
[2020-04-05] MEDS ORDERED: AZIT250T PO (23:36)
[2020-04-05 23:45] VITALS: BP 131/70
== END 2020-04-05 23:50 | disposition home or self-care (01) ==
LOC: ER 18:22
DX: J39.8 Other specified diseases of upper respiratory tract (principal); B97.89 Other viral agents as the cause of diseases classified elsewhere; Z20.828 Contact with and (suspected) exposure to other viral communicable diseases; J98.11 Atelectasis; J44.9 Chronic obstructive pulmonary disease, unspecified; E11.9 Type 2 diabetes mellitus without complications; I10 Essential (primary) hypertension; E78.00 Pure hypercholesterolemia, unspecified; F17.200 Nicotine dependence, unspecified, uncomplicated; Z91.040 Latex allergy status; Z91.018 Allergy to other foods
CPT/HCPCS: 36415; 71260; 74177; 80053; 82962; 85025; 87040; 96361; 96374; 96375; 99285; J1815; J2405; J7030; Q9967; U0003